=== PATIENT | male | born 1985 | race Caucasian/White ===

== ENCOUNTER 2024-05-29 15:37 | Emergency (ER) | payer OTHER, SELFPAY ==
[2024-05-29] VITALS (8 sets, daily range): BP systolic 102–132; BP diastolic 76–96; PULSE 67–115; RESP 16–28; TEMP 36.6; O2SAT 92–100; BMI 26.5
--- NOTE | 2024-05-29 15:49 | EX.ED.UPPERE ---
HPI History of Present Illness Chief Complaint: Upper Extremity Injury Narrative Narrative: 38-year-old male who denies significant past medical history, states he was playing softball. He caught getting [place] ball, but fell onto his left wrist, then fell to his left elbow bent inward. He felt and heard a pop. He now complains of extreme pain at the elbow, not so much of the wrist. He denies hitting his head or loss of consciousness. He is right-hand dominant. PFSH PFSH Medical History no medical history Home Medications ?Medication ?Instructions ?Recorded ?Last Taken ?Type hydrocodone-acetaminophen 5-325mg 1 tab PO Q6H PRN PRN Pain 3 days 05/29/24 Unknown Rx 5mg-325mg #10 TABLETS Allergy/AdvReac Type Severity Reaction Status Date / Time No Known Allergies Allergy Verified 05/29/24 15:38 Family History no significant family his Surgical History no surgical history Social History Smoking Status: Never smoker ROS ROS ED ROS Narrative Constitutional: No fever, no chills. HEENT: No sore throat. No neck pain. No loss of vision. No rhinorrhea. Cardiovascular: No chest pain. No palpitations. No pedal edema. Respiratory: No cough, no shortness of breath. Abdominal: No abdominal pain. No nausea. No vomiting. Genitourinary: No dysuria. No hematuria. Musculoskeletal: No myalgias. Left elbow deformity. Neurologic: No headaches. No dizziness. No lightheadedness. Skin: No rash. No change in color. Psychiatric: No depression. No anxiety. EXAM Physical Exam Narrative Exam Narrative: GCS 15. ABCs intact. Afebrile. Vital signs noted. Positive tachycardia. Lungs clear to auscultation bilaterally. Abdomen soft nontender. Able to transfer from wheelchair to bed. Positive deformity of left elbow. Holding arm and flexion at the elbow. Able to oppose thumb, and abduct and adduct fingers. Palpable radial pulse, left. No shoulder tenderness or crepitance. Const Vital Signs: 05/29/24 15:39 Temperature 97.8 F Temperature Source Temporal Pulse Rate 115 H Respiratory Rate 16 Pulse Ox 98 Oxygen Delivery Method Room Air MDM MDM MDM Narrative Medical decision making narrative: IV was started and patient was administered 6 mg of morphine. In the differential diagnosis is elbow fracture versus elbow dislocation versus fracture dislocation. X-rays of the left wrist interpreted by myself independently shows no evidence of acute fracture. I reviewed the radiology report which confirms my independent interpretation. Additionally, on my interpretation/individual interpretation of the left elbow x-ray, there is posterior dislocation of the olecranon, but no evidence of acute fracture. I also reviewed the radiology report which confirms my independent interpretation. Patient was consented for procedural sedation using propofol. See procedure note for details. Additionally left posterior arm/long-arm splint to ulnar gutter splint was used using 4 inch Ortho-Glass. Patient was neurovascular intact distally after application. Upon repeat examination at approximately 1750, he feels improved. Postreduction elbow x-ray in 1 view interpreted by myself and independently shows successful closed reduction of the left elbow. I reviewed the radiology report which confirms my independent interpretation for the postreduction elbow x-ray as well. I will write him a prescription for 12 [place] tablets, and referred him to orthopedics on-call, Dr. Cruz to be seen within the next 5 to 7 days. At this point in time, I feel he can be discharged to follow-up. Return instructions to the emergency department were reviewed. Disposition is discharged in improved and stable condition. History & Record Review Discussion w/independent historian: Patient Procedures Upper Extremity Splints Upper Extremity Splint: Orthoglass (4 inch Ortho-Glass) and Long arm Splint Fabrication: Fabricated Location: Left Procedural Sedation Procedural sedation for closed reduction of left elbow: Consent Signed: Yes Any Problems With Anesthesia: No You/Your family experience fever (hyperthermia) w/anesthesia: Unknown Sedation medication: Propofol Dose: 200 Route: IV Total Moderate Sedation Units: 16 [place]amp[place] Score: Class I ASA Classification: II Comment:: Dr. Jolie Anthony assisted with countertraction, stabilazation of the humerus after initial attempt at reduction. Extension, traction, and flexion of the left elbow by myself yielded successful closed reduction. Patient tolerated procedure well. Discharge Plan Triage Chief Complaint: Upper Extremity Injury ED Provider: Keny Engel Dx/Rx/DC Orders Clinical Impression: Dislocation of left elbow, Fall Instructions: ED Elbow Dislocation Prescriptions: New hydrocodone-acetaminophen 5-325 mg tablet 1 tab PO Q6H PRN PRN (Reason: Pain) 3 Days Qty: 10 0RF Primary Care Provider: Craig Cabezas Referrals: Craig Cabezas DO [Primary Care Provider] - Chad Cruz MD [Med Staff - Active Staff] - 5-7 Days Print Language: Yoruba Disposition Disposition: Home, Self Care
[2024-05-29] MEDS: morphine 8 MG/ML Syringe 6 MG IV (15:57)
--- NOTE | 2024-05-29 16:20 | RAD_ITS ---
EXAM: XR LEFT WRIST COMPLETE, 3 OR MORE VIEWS CLINICAL INDICATION: trauma TECHNIQUE: Frontal, lateral and oblique views of the left wrist. COMPARISON: No relevant prior studies available. FINDINGS: BONES/JOINTS: Unremarkable. No acute fracture. No subluxation. Normal alignment. Preservation of the joint space. No sclerotic or destructive changes observed. SOFT TISSUES: Unremarkable. No soft tissue swelling or gas. No radiopaque foreign body. RAD/Wrist min 3 Views IMPRESSION: Negative left wrist x-rays. Electronically Signed: William Jacinto MD at 17:00 EDT ,
--- NOTE | 2024-05-29 16:20 | RAD_ITS ---
EXAM: XR LEFT ELBOW COMPLETE, 3 OR MORE VIEWS CLINICAL INDICATION: trauma TECHNIQUE: Frontal, lateral and oblique views of the left elbow. COMPARISON: No relevant prior studies available. FINDINGS: BONES/JOINTS: There is a posterior dislocation of the radius and ulna in relation to the humerus. No obvious fractures are identified. There is no displacement of the anterior or posterior fat pads. No destructive or sclerotic lesions. SOFT TISSUES: Unremarkable. No soft tissue swelling or gas. No radiopaque foreign body. RAD/Elbow min 3 Views IMPRESSION: Dislocation of the elbow. Electronically Signed: William Jacinto MD at 16:59 EDT ,
[2024-05-29] MEDS: Propofol 200 MG/20 ML Vial 20 MG IV BOLUS (16:53)
--- NOTE | 2024-05-29 17:10 | RAD_ITS ---
EXAM: XR LEFT ELBOW, 2 VIEWS CLINICAL INDICATION: post reduction TECHNIQUE: Frontal and lateral views of the left elbow. COMPARISON: 05/29/2024 at 1616 hours FINDINGS: BONES/JOINTS: There has been closed reduction of a left elbow dislocation. Alignment is anatomic. There is no displacement of the anterior or posterior fat pads. No acute fracture. No destructive or sclerotic lesions. SOFT TISSUES: Unremarkable. No soft tissue swelling or gas. No radiopaque foreign body. OTHER FINDINGS: There is a fiberglass splint in place. RAD/Elbow 2 Views IMPRESSION: Closed reduction of a left elbow dislocation. Electronically Signed: William Jacinto MD at 17:49 EDT ,
== END 2024-05-29 18:25 | disposition home or self-care (01) ==
PROVIDERS: Emergency Provider Emergency Medicine; PCP Family Medicine; Visit Provider Emergency Medicine
DX: S53.125A Posterior dislocation of left ulnohumeral joint, initial encounter (principal); W18.39XA Other fall on same level, initial encounter; Y93.64 Activity, baseball
CPT/HCPCS: 24600; 29105; 29125; 73070; 73080; 73110; 96374; 99152; 99285

== ENCOUNTER → 2024-06-21 | Outpatient (CLI) | payer SELFPAY, OTHER ==
--- NOTE | 2024-06-21 07:24 | CT_ITS ---
STUDY: CT LEFT ELBOW WITHOUT CONTRAST REASON FOR EXAM: Male, 38 years old. DISLOCATION OF LEFT ELBOW RADIATION DOSAGE (If Supplied By Facility): CTDIvol = ( 24.58 ) mGy, DLP = ( 566.75 ) mGycm TECHNIQUE: Transaxial CT imaging of the elbow was performed. Sagittal and coronal images were reconstructed. Individualized dose optimization techniques were used for this CT. COMPARISON: Comparison is made with prior radiographs of the left elbow dated May 29, 2024. FINDINGS: Tiny bony densities are seen posterior to the distal portion of the lateral femoral condyle suggestive of possible avulsion caused by the dislocation. The largest bony fragment measures 3.7 mm. Normal radiocapitellar and ulnotrochlear articulations. Diffuse soft tissue swelling. There is evidence of a joint effusion. CT/Extremity Upper without Contra IMPRESSION: Tiny bony fragments are seen overlying the lateral humeral condyle suggestive of a possible avulsions secondary to the elbow dislocation. Soft tissue swelling and elbow joint effusion. Electronically Signed: Alan Rizzo MD at 11:45 EDT ,
== END | disposition home or self-care (01) ==
PROVIDERS: PCP Family Medicine; Referring Provider Physician Assistant; Visit Provider Physician Assistant
DX: M24.322 Pathological dislocation of left elbow, not elsewhere classified (principal)
CPT/HCPCS: 73200